=== PATIENT | female | born 1995 | race Caucasian/White ===

== ENCOUNTER → 2022-02-04 | Outpatient (CLI) | payer OTHER ==
[2022-02-04 10:42] LABS: HEMOGLOBIN 14.8 gm/dl (12.3-15.3); RED BLOOD COUNT 5.03 M/UL (4.00-5.10); WHITE BLOOD COUNT 6.6 K/UL (4.5-11.0)
[2022-02-04 11:10] LABS: BUN/CREATININE RATIO 12 (0-10)
[2022-02-05 08:14] LABS: HBSAG SCREEN Negative (Negative); HCV AB 0.1 (0.0-0.9); HEP A AB, IGM Negative (Negative); HEP B CORE AB, IGM Negative (Negative); HIV AB/P24 AG SCREEN Non Reactive (Non Reactive); THYROXINE (T4) 5.4 ug/dL (4.5-12.0); VITAMIN D, 25-HYDROXY 25.4 ng/mL (30.0-100.0)
== END ==
LOC: LAB 08:58
PROVIDERS: Nurse Practitioner Psychiatric/Mental Health
DX: Z13.228 Encounter for screening for other metabolic disorders (principal); Z11.59 Encounter for screening for other viral diseases; Z11.4 Encounter for screening for human immunodeficiency virus [HIV]; R94.6 Abnormal results of thyroid function studies; D51.9 Vitamin B12 deficiency anemia, unspecified; R73.09 Other abnormal glucose; E61.1 Iron deficiency; E78.00 Pure hypercholesterolemia, unspecified; E55.9 Vitamin D deficiency, unspecified; R76.12 Nonspecific reaction to cell mediated immunity measurement of gamma interferon antigen response without active tuberculosis; R07.9 Chest pain, unspecified
CPT/HCPCS: 36415; 80053; 80061; 80074; 82607; 82728; 83036; 83540; 84436; 84443; 84481; 85025; 86780; 87389; 93005

== ENCOUNTER 2022-02-20 15:31 | Emergency (ER) | payer OTHER ==
[2022-02-20] MEDS ORDERED: ZITHROMAX250 MG PO (17:11)
[2022-02-20] MEDS ORDERED: BENZONATATE200 MG PO (17:11)
== END 2022-02-20 17:36 | disposition home or self-care (01) ==
LOC: ER1 15:31
DX: U07.1 COVID-19 (principal); Z88.5 Allergy status to narcotic agent
CPT/HCPCS: 99284; U0002